=== PATIENT | male | born 1990 | race American Indian/Alaskan Native ===

== ENCOUNTER 2019-09-29 09:44 | Emergency (ER) | payer SELFPAY ==
[2019-09-29 09:52] VITALS: BP 132/85
== END 2019-09-29 11:30 | disposition home or self-care (01) ==
LOC: ED 09:44
DX: S91.332A Puncture wound without foreign body, left foot, initial encounter (principal); X58.XXXA Exposure to other specified factors, initial encounter; Y93.89 Activity, other specified; Y92.89 Other specified places as the place of occurrence of the external cause; Y99.8 Other external cause status
CPT/HCPCS: 99283; A6250